=== PATIENT | female | born 1970 | race Caucasian/White ===

== ENCOUNTER 2016-09-05 01:09 | Emergency (ER) | payer OTHER, BC ==
[~2016-09-05] VITALS: Ht 167.6 cm; Wt 55.0 kg
[2016-09-05 01:13] VITALS: BP 127/75; PULSE 73; RESP 16; TEMP 97.5; O2SAT 100
[2016-09-05] MEDS ORDERED: PLAQ200T PO (01:24)
[2016-09-05] MEDS ORDERED: TREX15TA PO (01:24)
[2016-09-05] MEDS ORDERED: FOLI20CA (01:24)
[2016-09-05] MEDS ORDERED: LEVO1TAB50 (01:24)
[2016-09-05] MEDS ORDERED: [UNRECOGNIZED DRUG - OTHER] (01:25)
[2016-09-05] MEDS ORDERED: PAXI40TA8 (01:25)
[2016-09-05] MEDS ORDERED: ASPI-110 PO (01:25)
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
[2016-09-05] MEDS ORDERED: TETANUS/DIPHTHERIA TOXOID ADULT 0.5 ML VIAL IM ONE (01:45)
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
[2016-09-05] MEDS ORDERED: ROBA750T PO (03:55)
== END 2016-09-05 04:03 | disposition home or self-care (01) ==
LOC: NEPD 01:09
DX: S16.1XXA Strain of muscle, fascia and tendon at neck level, initial encounter (principal); S09.90XA Unspecified injury of head, initial encounter; S40.811A Abrasion of right upper arm, initial encounter; Z23 Encounter for immunization; Z87.39 Personal history of other diseases of the musculoskeletal system and connective tissue; Z86.2 Personal history of diseases of the blood and blood-forming organs and certain disorders involving the immune mechanism; V09.20XA Pedestrian injured in traffic accident involving unspecified motor vehicles, initial encounter
CPT/HCPCS: 70450; 72125; 90471; 90714; 99285; L0150